=== PATIENT | male | born 1995 | race Caucasian/White ===

== ENCOUNTER 2017-02-15 14:14 | Emergency (ER) | payer BC ==
[~2017-02-15] VITALS: Ht 182.9 cm; Wt 77.1 kg
[~2017-02-15 14:14] MED LIST: ALBU1AER9 INH; CLR10 PO
[2017-02-15 14:17] VITALS: BP 109/67; TEMP 37; Ht 182.9 cm; Wt 77.1 kg
[2017-02-15] MEDS ORDERED: DOXY100C76 PO (15:20)
[2017-02-15] MEDS ORDERED: CEPHALEXIN MONOHYDRATE 250 MG CAP PO ONE (15:45)
[2017-02-15] MEDS ORDERED: SULFAMETHOXAZOLE/TRIMETHOPRIM DS 800/160MG TAB PO ONE (15:45)
[2017-02-15] MEDS ORDERED: CEPH500C PO (15:50)
[2017-02-15] MEDS ORDERED: SULF800T23 PO (15:50)
--- NOTE | 2017-02-15 15:51 | EMERGENCY ROOM VISIT NOTE ---
History First contact with patient: 15:21 Chief Complaint: RASH Stated Complaint: SKIN INFECTION,RASH ON LEG History of Present Illness The patient is a 21 year old male who presents to the Emergency Room with complaints of a rash on his legs that started last week. The patient was seen by [facility] 5 days ago. He was told that he had a staph infection. He was prescribed doxycycline, which she has been taking for the last 3 days with no improvement. He denies any injuries. No new exposures. No fever or chills. The rash is now spreading. It started on the medial aspect of his right thigh. It is now on the anterior aspect of both thighs. It also is spreading up to his groin. Review of Systems 10 system review performed and negative unless noted in HPI or below Past Medical/Surgical History bronchitis Family History No significant family history Social History Smoking Status: Current Every Day Smoker Alcohol Use: none Drug Use: none Marital Status: single Housing Status: lives with family Occupation Status: [employer] student Current/Historical Medications Scheduled Cephalexin Monohydrate (Keflex), 500 MG PO QID Doxycycline Monohydrate (Monodox), 100 MG PO BID Sulfa/Trimethoprim (Bactrim Ds 800MG/160MG), 1 TAB PO BID Physical Exam Vital Signs Date Time Temp Pulse Resp B/P (MAP) Pulse Ox O2 Delivery O2 Flow Rate FiO2 02/15/17 16:24 86 96 02/15/17 14:17 37.0 90 18 109/67 97 Room Air Physical Exam VITALS: Vitals are noted on the nurse's note and reviewed by myself. Vital signs stable. GENERAL: 21-year-old male, in no acute distress, nondiaphoretic, well-developed well-nourished. SKIN: Erythematous, raised, approximate 2 mm, nonblanching lesions noted diffusely over the thighs bilaterally spreading proximally into the groin area. There is one lesion approximately 1 cm in size that is particularly erythematous. Crusting is present. No active drainage noted. HEAD: Normocephalic atraumatic. MUSCULOSKELETAL: No muscle atrophy, erythema, or edema noted. Normal gait. Strength 5/5 throughout. NEURO: Patient was alert and oriented to person place and time. Normal sensation to touch. No focal neurological deficits. Medical Decision & Procedures Medications Administered Medications (Trade) Dose Ordered Sig/Kristel Route Start Time Stop Time Status Last Admin Dose Admin Cephalexin Monohydrate (Keflex Cap) 500 mg NOW ONCE PO 02/15/17 15:45 02/15/17 15:46 DC 02/15/17 15:43 500 MG Trimethoprim/ Sulfamethoxazole (Septra Ds 800/ 160MG Tab) 1 tab NOW ONCE PO 02/15/17 15:45 02/15/17 15:46 DC 02/15/17 15:43 1 TAB ED Course The patient was seen and examined He was given 1 dose of Keflex and Bactrim Discharge instructions were reviewed, and he was discharged in good condition Medical Decision Differential diagnosis: Folliculitis, allergic reaction, abscess This patient is a 21-year-old male that presented to the emergency department complaining of a worsening rash to his legs. The patient was reportedly diagnosed with a staph infection at [facility] earlier this week. He was prescribed doxycycline. I am unsure if he is taking it correctly. His clinical exam is consistent with folliculitis. I also do not know if this is a MRSA infection versus an MSSA infection. Given the fairly common resistance of MRSA to doxycycline, I changed him to Bactrim. He was also given Keflex for additional coverage. The patient was instructed to take the medication exactly how it as prescribed. He was also instructed to call [facility] tomorrow for follow-up. He was in agreement with this plan, and was discharged in good condition. This chart was completed in part utilizing [employer] Speech Voice Recognition software. Attempts were made to minimize the grammatical errors, random word insertions, pronoun errors and incomplete sentences. Any formal questions or concerns about the content, text or information contained within the body of this dictation should be directly addressed to the provider for clarification. Medication Reconcilliation Current Medication List: was personally reviewed by me Blood Pressure Screening Patient's blood pressure: Normal blood pressure Impression Primary Impression: Folliculitis Departure Information Dispostion Home / Self-Care Condition GOOD Prescriptions Sulfa/Trimethoprim (Bactrim Ds 800MG/160MG) Tab 1 TAB PO BID for 7 Days, #14 TAB Prov: Queenie Cook PA-C 02/15/17 Cephalexin Monohydrate (Keflex) 500 Mg Cap 500 MG PO QID for 7 Days, #28 CAP Prov: Queenie Cook PA-C 02/15/17 Referrals No Doctor, Assigned (PCP) Patient Instructions My [facility] Additional Instructions You were evaluated in the emergency department for a rash on your legs. This rash is consistent with folliculitis. Please stop doxycycline. Begin Keflex. Please finish the course. Take as prescribed. Please also began Bactrim and also finish the course. Take as prescribed. Please take Benadryl 50 mg every 8 hours as needed for itch. Please follow-up with [facility] within the next 1-2 days for recheck. Please return to the emergency department with any new or worsening symptoms.
[2017-02-15 16:24] VITALS: PULSE 86; O2SAT 96
== END 2017-02-15 16:24 | disposition home or self-care (01) ==
LOC: C.EDB 14:15
DX: L73.9 Follicular disorder, unspecified (principal); F17.200 Nicotine dependence, unspecified, uncomplicated